=== PATIENT | female | born 2005 | race African-American/Black ===

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

== ENCOUNTER 2025-01-05 21:10 | Emergency (ER) | payer OTHER, SELFPAY ==
[2025-01-05 21:29] VITALS: BP 119/83; PULSE 67; RESP 16; TEMP 36.7; O2SAT 99; BMI 25.4
--- NOTE | 2025-01-05 21:54 | ED.PSYCH ---
HPI - Psych General Time Seen by Provider: 21:54 Date Seen: 01/05/25 Chief Complaint: Psychiatric Problem/Disorder Stated Complaint: Mental Health Time Seen by Provider: 01/05/25 21:52 Source: patient, RN notes reviewed and old records reviewed Mode of arrival: ambulatory Limitations: no limitations History of Present Illness HPI Narrative: This 19-year-old female is coming into the ER voluntarily with concern of increased suicidal ideation. She came in via police from [facility]. She called in with complaints of increased suicidal ideation, she feels she does not want to live anymore, she feels that she is not meant to live. She has significant stressors, she thinks that people feel she is crazy and that she probably is. She has many plans but her 1 thought is to hang herself from her door. She was hospitalized in September at [facility]. She has been working with a counselor and a psychiatrist via telehealth and started on an antidepressant but quit it. She tells me that she does not think she wants to make her parents sad and she does not want her dad cry, she feels like he would cry if she was . She states she has had a chaotic home life. She notes that school is relatively easy for her, she does note that she had some decline in her grades as she had to leave campus and was hospitalized. She states that she could not go on campus until she had a follow-up assessment with them. She denies any ingestion of any drugs. Is noted that when she starts talking, she just continues talking and is very verbose. Related Data Home Medications ?Medication ?Instructions ?Recorded ?Confirmed No Known Home Medications 01/05/25 01/05/25 Allergies Allergy/AdvReac Type Severity Reaction Status Date / Time No Known Allergies Allergy Verified 01/05/25 21:29 Review of Systems Status of ROS: Reports: 6 or more systems reviewed and unremarkable except as noted in History and below PFSH PFS Social History Smoking Status: Never smoker How often do you have a drink containing alcohol: never AUDIT-C Alcohol total score: 0 Non-prescribed substance use: denies use Exam Const: Vital Signs, click to edit/add: Vital Signs - 24 hr 01/05/25 21:29 Temperature 98.0 F Pulse Rate [Pulse Oximeter] 67 Respiratory Rate 16 Blood Pressure [Ri ght Upper Arm] 119/83 Pulse Oximetry 99 Oxygen Delivery Me thod Room Air This 19-year-old female is alert, interactive, no apparent distress. When she starts talking she is very verbose, speech almost seems rapid at times. She does endorse suicidality. She does not have good eye contact, will occasionally look at me but mostly looks away and continues to talk. Sclera clear, pupils equal round, conjugate gaze, she is wearing glasses. Symmetrical facial function. Neck is supple, no thyromegaly masses or nodules, no adenopathy. Lungs are clear, good air entry, no wheezing or crackles. CV regular rate and rhythm, no murmur. Arms without any wounds. Documenting provider has reviewed patient's vital signs: yes Course Course ED Course: Patient really does not want to have to do a blood draw. Will have her do the telehealth 1st. We have collected urine, will do urine test and urine drug screen. I have concerns about her mental well being. I at this point do think we may be considering hospitalization, will wait for telehealth interview with her. Reevaluation(s) Time of Reevaluation #1: 22:47 Reevaluation #1: Patient's dad did call, we asked patient if I could talk to to her dad. She is not giving me permission. Nursing staff had to tell her father that I could not talk to him. Time of Reevaluation #2: 22:56 Reevaluation #2: Did talk to patient. She is smiling, happy ear. She is happy to go home. She states that she talk to the crisis Center before coming in, they were the ones who center in here. Did review with her that she should utilize that phone number in the future if she is feeling no or having worsening mood, or return here. We discussed some positive things in her life in things that she can try to focus on that are positive. She does contract for safety. Will discharge her to home for further outpatient management with her therapist and psychiatrist. Consultations Consultation #1: Nikita the nurse from telehealth services is paco this patient is low risk, should be discharge. He does not feel there is any overt suicidality. She has services. He does wonder if there is an underlying undiagnosed personality disorder. He says that she knows a lot about therapy and treatments for personality disorders. He does recognize that she has thoughts about hanging herself but these have been pervasive since age 12. Her 1 therapist that she really meshes with is out for the next 3 weeks for maternity leave. She had problems with the venlafaxine, had significant side effects. She does have a psychiatric medication management person which she is supposed to talk to again about her medicines. I will reassess the patient, discuss this with her and come up with the final plan. Time: 22:34 Vital Signs Vital signs: Initial Vital Signs Temperature 98.0 F 01/05/25 21:29 Temperature Source Temporal Artery Scan 01/05/25 21:29 Pulse Rate 67 01/05/25 21:29 Respiratory Rate 16 01/05/25 21:29 Blood Pressure 119/83 01/05/25 21:29 Blood Pressure Mean 95 01/05/25 21:29 Blood Pressure Position Sitting 01/05/25 21:29 Pulse Oximetry 99 01/05/25 21:29 Oxygen Delivery Method Room Air 01/05/25 21:29 Vital Signs Temperature 98.0 F 01/05/25 21:29 Pulse Rate 67 01/05/25 21:29 Respiratory Rate 16 01/05/25 21:29 Blood Pressure 119/83 01/05/25 21:29 Pulse Oximetry 99 01/05/25 21:29 Oxygen Delivery Method Room Air 01/05/25 21:29 Temperature 98.0 F 01/05/25 21:29 Pulse Rate 67 01/05/25 21:29 Respiratory Rate 16 01/05/25 21:29 Blood Pressure 119/83 01/05/25 21:29 Pulse Oximetry 99 01/05/25 21:29 Oxygen Delivery Method Room Air 01/05/25 21:29 MDM - Psych Lab Data Labs: Lab Results 01/05/25 Range/Units 21:58 Urine Color Yellow (Yellow) Urine Appearance Clear (Clear) Urine pH 6.0 (5.0-8.5) Ur Specific [place] >= 1.030 (1.000-1.030) Urine Protein Negative (Negative) Urine Glucose (UA) Negative (Negative) Urine Ketones Negative (Negative) Urine Blood Negative (Negative) Urine Nitrite Negative (Negative) Urine Bilirubin Negative (Negative) Urine Urobilinogen 0.2 (0.2-1.0) Ur Leukocyte Esterase Negative (Negative) Urine RBC 0-2 (0-2) Urine WBC 0-2 (0-5) Ur Squamous Epith Cells Few (None-Few) Urine Bacteria None (None) Urine Opiates Screen Negative (Negative) Ur Oxycodone Screen Negative (Negative) Urine Methadone Screen Negative (Negative) Ur Barbiturates Screen Negative (Negative) U Tricyclic Antidepress Negative (Negative) Ur Phencyclidine Scrn Negative (Negative) Ur Amphetamines Screen Negative (Negative) U Methamphetamines Scrn Negative (Negative) U Benzodiazepines Scrn Negative (Negative) Urine Cocaine Screen Negative (Negative) U Marijuana (THC) Screen Negative (Negative) Ur Drug Screen Comment See Note Discharge Plan Discharge Clinical Impression: Suicidal ideation Patient Disposition: Home, Self-Care Condition: Stable Instructions: Suicide Prevention (ED) Additional Instructions: Please continue to work with her therapist; schedule follow-up with a psychiatrist to discuss a different medication since the other 1 had side effects. If you feel your mood is worsening, feel you are becoming suicidal or have a definite plan, please seek emergent medical evaluation. You are always welcome to return to the ER here if needed. Activity Level: No Restrictions Discharge Diet: Regular Prescriptions: No Action No Known Home Medications Follow Up/Referrals: Provider,Not a Local [Primary Care Provider, Family Practice] Stand Alone Forms: [employer] Info Instructions
[2025-01-05 22:05] LABS: Appearance Urine Clear (Clear); Bilirubin Urine Negative (Negative); Blood Urine Negative (Negative); Color Urine Yellow (Yellow); Glucose Urine Negative (Negative); Ketones Urine Negative (Negative); Leukocyte Esterase Urine Negative (Negative); Nitrite Urine Negative (Negative); Protein Urine Negative (Negative); Specific Gravity Urine >= 1.030 (1.000-1.030); Urobilinogen Urine 0.2 (0.2-1.0)
[2025-01-05 22:15] LABS: Amphetamine Screen Urine Negative (Negative); Barbiturate Screen Urine Negative (Negative); Benzodiazepines Screen Urine Negative (Negative); Cannabinoid Screen Urine Negative (Negative); Cocaine Screen Urine Negative (Negative); Methadone Screen Urine Negative (Negative); Methamphetamines Screen Urine Negative (Negative); Opiate Screen Urine Negative (Negative); Oxycodone Screen Urine Negative (Negative); Phencyclidine Screen Urine Negative (Negative); Tricyclic Antidepressant Urine Negative (Negative)
[2025-01-05 22:16] LABS: RBC Urine 0-2 (0-2); Squamous Epithelial Cell Urine Few (None-Few); WBC Urine 0-2 (0-5)
== END 2025-01-05 23:10 | disposition home or self-care (01) ==
PROVIDERS: Emergency Provider Family Medicine
DX: R45.851 Suicidal ideations (principal)
CPT/HCPCS: 80306; 81001; 99283; 99284; Q3014